=== PATIENT | male | born 1975 | race African-American/Black ===

== ENCOUNTER 2017-01-05 15:15 | Emergency (ER) | payer MEDICAID ==
[~2017-01-05] VITALS: Ht 188 cm; Wt 108.9 kg
[2017-01-05 16:18] VITALS: BP 140/88
== END 2017-01-05 16:34 | disposition home or self-care (01) ==
LOC: ER 15:19
DX: S83.92XA Sprain of unspecified site of left knee, initial encounter (principal); W01.0XXA Fall on same level from slipping, tripping and stumbling without subsequent striking against object, initial encounter; Y93.89 Activity, other specified; Y99.8 Other external cause status; Y92.099 Unspecified place in other non-institutional residence as the place of occurrence of the external cause
CPT/HCPCS: 73562

== ENCOUNTER 2017-04-02 04:18 | Emergency (ER) | payer MEDICAID ==
[~2017-04-02] VITALS: Ht 190.5 cm; Wt 126.7 kg
[2017-04-02] MEDS ORDERED: cefTRIAXone SOD 1,000 MG VL IM ONE (05:45)
[2017-04-02 05:54] VITALS: BP 120/77
== END 2017-04-02 06:41 | disposition home or self-care (01) ==
LOC: ER 04:19
DX: S63.601A Unspecified sprain of right thumb, initial encounter (principal); W23.0XXA Caught, crushed, jammed, or pinched between moving objects, initial encounter; Y93.72 Activity, wrestling; Y99.8 Other external cause status; Y92.89 Other specified places as the place of occurrence of the external cause
CPT/HCPCS: 29130; 73140